=== PATIENT | female | born 1970 | race Caucasian/White ===

== ENCOUNTER 2024-11-16 09:04 | Emergency (ER) | payer BC, OTHER ==
[2024-11-16 11:23] LABS: BASOPHILS ABSOLUTE AUTO 0.04 K/uL (0.00-0.10); BASOPHILS PERCENT AUTO 0.4 % (0.1-1.3); EOSINOPHILS ABSOLUTE AUTO 0.50 K/uL (0.00-0.40); EOSINOPHILS PERCENT AUTO 5.5 % (0.0-5.4); IMMATURE GRAN ABSOLUTE AUTO 0.06 K/uL (0.00-0.23); IMMATURE GRAN PERCENT AUTO 0.7 % (0.0-0.7); LYMPHOCYTES ABSOLUTE AUTO 1.92 K/uL (0.8-3.3); LYMPHOCYTES PERCENT AUTO 20.9 % (11.4-47.7); MONOCYTES ABSOLUTE AUTO 0.78 K/uL (0.20-0.90); MONOCYTES PERCENT AUTO 8.5 % (3.3-12.6); NEUTROPHILS ABSOLUTE AUTO 5.87 K/uL (1.0-7.6); NEUTROPHILS PERCENT AUTO 64.0 % (40.0-78.1); PLATELET COUNT,PLT 301 K/uL (130-375); RED BLOOD CELL COUNT 4.79 M/uL (3.77-5.24); WHITE BLOOD CELL COUNT,WBC 9.2 K/uL (3.2-11.0)
[2024-11-16 11:46] VITALS: BP 175/96; PULSE 102
[2024-11-16 11:53] LABS: A/G RATIO 0.9 (1.2-2.2); ASPARTATE AMNIOTRANSFERASE,AST 19 U/L (15-37); BILIRUBIN TOTAL 0.4 mg/dL (0.2-1.0); BLOOD UREA NITROGEN,BUN 13 mg/dL (7-18); CARBON DIOXIDE,CO2 28 mmol/L (21-32); CHLORIDE,CL 105 mmol/L (100-108); CREATININE 0.9 mg/dL (0.6-1.0); EST CRCL DRUG DOSING (CG) 58.42 mL/min; ESTIMATED GFR 76 mL/min (>60); GLUCOSE RANDOM 104 mg/dL (74-106); POTASSIUM,K 4.0 mmol/L (3.6-5.2); PROTEIN TOTAL,TP 8.3 g/dL (6.4-8.2); SODIUM,NA 143 mmol/L (140-148)
[2024-11-16 12:56] LABS: ALANINE AMINOTRANSFERASE,ALT 37 U/L (12-78)
[2024-11-23 16:48] LABS: ANAPLASMA PHAGOCYTOPHILUM PCR Not Detected; BABESIA MICROTI BY PCR Not Detected; EHRLICHIA CHAFFEENSIS BY PCR Not Detected; EHRLICHIA EWINGII/CANIS BY PCR Not Detected; EHRLICHIA MURIS-LIKE BY PCR Not Detected
== END 2024-11-16 13:19 | disposition home or self-care (01) ==
LOC: JP.ED 09:04
DX: M79.10 Myalgia, unspecified site (principal); I10 Essential (primary) hypertension; Z86.16 Personal history of COVID-19
CPT/HCPCS: 36415; 80053; 85025; 86140; 86618; 87468; 87469; 87484; 87798; 99283; 99284